=== PATIENT | female | born 1995 | race African-American/Black ===

== ENCOUNTER 2023-09-24 06:30 | Inpatient (IN) | payer OTHER ==
[2023-09-24] MEDS ORDERED: AMPICILLIN SODIUM 2 GM VIAL ONE (07:14)
[2023-09-24] MEDS: AMPICILLIN - 2 GM in SODIUM CHLORIDE 100 ML IVPB ONE (07:30)
[2023-09-24] MEDS: BUTORPHANOL TARTRATE 2 MG/ML VIAL IVPB ONE (07:40)
[2023-09-24] MEDS: PROMETHAZINE HCL 25 MG/1 ML VIAL IVPB ONE (07:40)
[2023-09-24 07:59] VITALS: BMI 33.4
[2023-09-24] MEDS ORDERED: BUTORPHANOL TARTRATE 2 MG/ML VIAL ONE ×2 (08:05→11:28)
[2023-09-24] MEDS ORDERED: PROMETHAZINE HCL 25 MG/1 ML VIAL ONE (08:05)
[2023-09-24 08:19] LABS: INR 0.96 (0.83-1.09); PROTHROMBIN TIME (PATIENT) 10.9 SEC (9.7-13.0)
[2023-09-24 08:20] LABS: BASO % 0.2 % (0-2.0); EOS % 0.3 % (0-4.5); HEMATOCRIT 39.8 % (32.4-45.2); HEMOGLOBIN 12.9 GM/dL (10.7-15.3); LYMPH % 10.9 % (8-40); MCH 26.2 pg (25.7-33.7); MCHC 32.3 g/dl (32.0-36.0); MEAN CELL VOLUME 81.2 fl (80-96); MEAN PLT VOLUME 8.2 fl (7.5-11.1); MONO % 5.7 % (3.8-10.2); NEUT % 82.9 % (42.8-82.8); PLATELET COUNT 252 10^3/uL (134-434); WHITE BLOOD COUNT 12.9 K/mm3 (4.0-10.0)
[2023-09-24 08:22] LABS: ACTIVATED PTT 27.4 SECONDS (25.2-36.5)
[2023-09-24 08:24] LABS: POTASSIUM 3.6 mmol/L (3.5-5.1)
[2023-09-24 08:25] LABS: BLOOD UREA NITROGEN 5.9 mg/dL (7-18)
[2023-09-24 08:29] LABS: CREATININE 0.6 mg/dL (0.55-1.3)
[2023-09-24] MEDS: ELECTROLYTE-148 SOLN 1,000 ML IV SCH (09:22)
[2023-09-24 09:38] LABS: SYPHILIS W/ RPR CONF NON-REACTIVE (NONREACTIVE)
[2023-09-24] MEDS ORDERED: LIDOCAINE HCL 1% PRESERVATIVE FREE - 30ML VIAL ONE (09:41)
[2023-09-24] MEDS ORDERED: OXYTOCIN 20 UNITS in 0.9% NS 20 UNIT/1,000 ML INFUS.BAG IV ONE ×2 (09:41→13:51)
[2023-09-24 10:06] LABS: HIV INTERPRETATION NEGATIVE (NEGATIVE)
[2023-09-24] MEDS ORDERED: OXYTOCIN 30 UNITS in 0.9% NS 30 UNIT/500 ML INFUS.BAG IVPB ONE (10:28)
[2023-09-24] MEDS: OXYTOCIN 20 UNITS in 0.9% NS 20 UNIT/1,000 ML INFUS.BAG IV SCH (11:30)
[2023-09-24 11:32] LABS: CORD BASE EXCESS -2.9 mmol/L (0-2); CORD HCO3 23.2 mmHg (20-29); CORD PCO2 45.5 mmHg (30-78); CORD pH 7.326 (7.14-7.44)
[2023-09-24 11:34] LABS: CORD HCO3 23.9 mmHg (20-29); CORD PCO2 58.8 mmHg (30-78); CORD pH 7.227 (7.14-7.44)
[2023-09-24] MEDS ORDERED: BENZOCAINE 20% 57 GM BOTTLE TP PRN (12:12)
[2023-09-24] MEDS ORDERED: oxyCODONE HCL 5 MG TABLET PO PRN (12:12)
[2023-09-24] MEDS ORDERED: METHYLERGONOVINE MALEATE 0.2 MG/1 ML AMP IM PRN (12:12)
[2023-09-24] MEDS ORDERED: BENZOCAINE 28 GM HEMORRHOIDAL OINTMENT TP PRN (12:12)
[2023-09-24] MEDS ORDERED: BISACODYL 10 MG SUPP.RECT RC PRN (12:12)
[2023-09-24] MEDS ORDERED: ACETAMINOPHEN 325 MG TABLET (FP) PO PRN (12:12)
[2023-09-24] MEDS ORDERED: WITCH HAZEL 50% (TUCKS) 40 PAD/JAR PAD TP PRN (12:12)
[2023-09-24] MEDS: IBUPROFEN 600 MG TABLET (FP) PO PRN (17:10)
[2023-09-25 07:04] LABS: BASO % 0.3 % (0-2.0); EOS % 1.1 % (0-4.5); HEMATOCRIT 27.5 % (32.4-45.2); LYMPH % 15.2 % (8-40); MCH 26.6 pg (25.7-33.7); MCHC 32.9 g/dl (32.0-36.0); MEAN PLT VOLUME 7.9 fl (7.5-11.1); MONO % 7.5 % (3.8-10.2); NEUT % 75.9 % (42.8-82.8); PLATELET COUNT 192 10^3/uL (134-434); RBC 3.39 M/mm3 (3.60-5.2); RDW 14.4 % (11.6-15.6); WHITE BLOOD COUNT 15.1 K/mm3 (4.0-10.0)
[2023-09-25] MEDS: MEASLES,MUMPS&RUBELLA VACC/PF 0.5 ML VIAL SQ ONE (13:31)
[2023-09-25] MEDS: BUTORPHANOL TARTRATE 2 MG/ML VIAL IVPUSH ONE (20:01)
[2023-09-25] MEDS: AMPICILLIN - 1 GM in SODIUM CHLORIDE 100 ML IVPB SCH (20:01)
[2023-09-25] MEDS ORDERED: SENNOSIDES/DOCUSATE COMBO (SENNA PLUS) TABLET (UD) PO PRN (22:00)
[2023-09-25 22:07] VITALS: RESP 18
[2023-09-26 09:40] VITALS: BP 129/77; PULSE 109; TEMP 98.9
== END 2023-09-26 15:41 | disposition home or self-care (01) | DRG 560 ==
LOC: JDEL 06:30 → JLDR 07:10 → J3W 14:00
PROVIDERS: ADMIT Family Medicine; ATTEND Family Medicine
PROC: 0KQM0ZZ Repair Perineum Muscle, Open Approach (ICD-10-PCS; principal; 2023-09-24)
PROC: 10E0XZZ Delivery of Products of Conception, External Approach (ICD-10-PCS; 2023-09-24)
DX: O48.0 Post-term pregnancy (principal); O70.1 Second degree perineal laceration during delivery; O77.0 Labor and delivery complicated by meconium in amniotic fluid; Z3A.40 40 weeks gestation of pregnancy; Z37.0 Single live birth
CPT/HCPCS: 36415; 36600; 80048; 82803; 85025; 85610; 85730; 86780; 86850; 86900; 86901; 87389; 88307-TC